=== PATIENT | male | born 1990 | race Caucasian/White ===

== ENCOUNTER 2018-03-23 12:28 | Day surgery (SDC) | payer OTHER, MEDICAID, SELFPAY ==
[2018-03-16 16:48] VITALS: BMI 31.4
[2018-03-23] VITALS (9 sets, daily range): BP systolic 111–148; BP diastolic 62–99; PULSE 80–97; RESP 10–18; TEMP 36.1–36.6; O2SAT 94–99; BMI 31.4
--- NOTE | 2018-03-23 | PATH_ITS ---
[facility] Accession Number: [id number] . 01 Material submitted: . PERIANAL . 01 Clinical history: . A: POSSIBLE CONDYLOMA . 02 Diagnosis: Perianal Biopsy: Squamous mucosa with condylomatous architectural features and involvement by low-grade squamous intraepithelial lesion (LSIL/mild dysplasia/AIN 1). No high-grade dysplasia or invasive tumor identified. Negative for p16 block immunostaining. [facility]/03/26/2018 . 02 Electronically signed: . Susie Kwok MD, Pathologist NPI- [id number] . 01 Gross description: . PERIANAL: Received in formalin are multiple fragment(s) of pat, soft tissue measuring 1.1 x 0.4 x 0.2 cm in aggregate submitted entirely in 1 cassette(s) /TRC /TRC . 02 Microscopic: . A p16 immunohistochemical stain is performed to further characterize the cells of interest on on block A1 and is negative for block immunostaining. A control stained appropriately. . The absence of p16 block immunostaining mitigates against the presence of high-risk HPV DNA in this biopsy. . * This test was developed and its performance characteristics determined by [facility]. It has not been cleared or approved by the U.S. Food and Drug Administration. The FDA has determined that such clearance or approval is not necessary. This test is used for clinical purposes. It should not be regarded as investigational or for research. . 02 Pathologist provided ICD-10: K62.82 . 02 CPT . 236055, [id number] Performed at: 01 [facility] [address], [place], [place] [id number] MD Abel Harvey MD Phone: [phone] Performed at: 02 [facility] [address] [place] [id number] MD Shaw Weiner MD Phone: [phone]
[2018-03-23] MEDS: LACTATED RINGERS 1,000 ML 42 ML IV (13:50)
--- NOTE | 2018-03-23 14:21 | PM.PREOP ---
Pre-operative Note Interval Note Pre-op Check: History & Physical Reviewed by Physician and Exam Performed H&P completed within 30 days and has changed as indicated here:: Little less obvious nodule adjacent to the anus.
--- NOTE | 2018-03-23 15:13 | SUR.OPER ---
Prone sheng knife on padded OR bed, head in foam head support, gel chest rolls, gel pad under knees, pillow under lower legs, toes free of pressure, arms secured on padded arm boards at <90 degrees abduction. Safety belt at lower back. tape over blanket over lower legs
[2018-03-23] MEDS: BUPIVACAINE 0.5% W/ EPI (PF) 30 ML VIAL INJ (15:22)
--- NOTE | 2018-03-23 15:55 | PM.OP.1 ---
Operative Date/Time/Diagnoses - Date of procedure: 03/23/18 Time of procedure: 15:55 Pre-op diagnosis: Perianal skin lesion. Perianal chronic infection process suspected fistula in ANO. 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 Same procedure as scheduled: Yes Indications: Periodically inflammation of a perianal skin lesion and the development of skin tags that may be condyloma Surgeon: Vinny Palomino Click Yes if Unassisted: Yes Anesthesia Type: General Operative Notes Findings: Perianal skin lesion on careful exam looked more like condylomata acuminata. There also moderate amounts of lesions on hemorrhoids just inside the anoderm. Closure Type: not applicable Specimen(s): other (Skin lesion and anal canal lesion) Implants & Drains: SETON of 0 surgilene Estimated Blood Loss (mL): 5 Blood products transfused: none Procedure in detail: The patient was placed sheng-knife prone on the operating table and under after undergoing general endotracheal anesthesia. He was carefully padded to prevent compression issues. He was prepped and draped in the usual fashion. This skin lesion of the perianal skin was excised and on careful exam looked more like a condylomata that I thought in the office. It was submitted. Digital exam was unremarkable of the anus. Circumferential exam however revealed multiple verrucous lesions highly suggestive of condyloma just inside the anal derm. Not quite circumferential but occupied a good bit of the circumference. I could not feel any tract of the fistula. Nor could I see 1. I fulgurated the internal lesions and excised 1 and submitted it along with the skin lesion. I then turned my attention to the small perianal lesion located at about the 7 o'clock position. I was able to probe a small barely visible sinus and it appeared to go deep to a portion of the musculature. Uncertain a 20 gauge catheter and injected better dyne through the tract and it was noted to egress internally through the presumptive fistulous opening. I partially open the tract and was able to pass a lacrimal probe into the internal opening from the external site. It went under a fair amount of the musculature and I decided not to divide it but places C ton. 0 Surgilene was passed through the opening and tied. The wounds were all irrigated. Local anesthetic was infiltrated around the perianal skin areas. Dressing was applied and the patient was awakened after placing him back on his bed. He was extubated taken recovery area in good condition. Complications: none Condition: stable Disposition: PACU Plan for aftercare: Follow-up in the office in about a week to 10 days.
[2018-03-23] MEDS: OXYCODONE IR 5 MG TABLET PO ×2 (16:05→16:57)
[2018-03-23] MEDS: ONDANSETRON 4 MG/2 ML INJ IV (16:14)
== END 2018-03-23 17:00 | disposition home or self-care (01) ==
PROVIDERS: Family Provider Physician Assistant; PCP Physician Assistant; Visit Provider Specialist
PROC: (CPT 45990; principal; 2018-03-23 13:30)
DX: K62.82 Dysplasia of anus (principal); A63.0 Anogenital (venereal) warts; K64.4 Residual hemorrhoidal skin tags; I10 Essential (primary) hypertension; R48.0 Dyslexia and alexia
CPT/HCPCS: 46275; 46922; 88305; 88342; J0330; J1100; J2405; J2704; J3010

== ENCOUNTER 2018-06-17 10:35 | Day surgery (SDC) | payer OTHER, MEDICAID, SELFPAY ==
[2018-06-07 13:03] VITALS: BMI 31.4
[2018-06-17 10:46] VITALS: BMI 31.4
[2018-06-17 11:02] VITALS: BP 127/82; PULSE 82; RESP 16; TEMP 36.3; O2SAT 96
[2018-06-17 11:03] VITALS: BMI 31.4
[2018-06-17] MEDS: LACTATED RINGERS 1,000 ML 42 ML IV ×2 (11:04→13:02)
--- NOTE | 2018-06-17 11:41 | PM.HP.1 ---
History of Present Illness Date Patient Seen: 06/17/18 Time Patient Seen: 11:44 Chief complaint: [id number] RECTAL EXAM UNDER ANESTHESIA Narrative: patient is gentleman had a transsphincteric fistula in ANO. A seton was placed and he also had condyloma acuminata excised and fulgurated. He is here now to remove his C ton and complete the fistulotomy as well as treat any recurrence of his condyloma. Patient History Medical History Transsphincteric anal fistula (Chronic) Condyloma (Acute) Elective surgery (Acute) ADHD (Chronic) Asthma (Chronic) Fatigue (Chronic) Hypertension (Chronic) Obese (Chronic) Former smoker (Resolved) Gonorrhea (Resolved) Family & Social History Family History: Reviewed 06/17/18 by Vinny Palomino MD Social History: household members friend(s) Tobacco & Substance use: Tobacco type e-cigarettes Smoking Status Current every day smoker Meds Home Medications Medication Instructions Recorded Confirmed Type [MULTIVITAMIN] 1 tab PO QDAY #0 03/31/17 06/17/18 History emtricitabine-tenofovir (TDF) 1 tab PO QDAY #30 tab 10/28/17 06/17/18 Rx [Truvada] [BENADRYL] 25 mg PO PRN PRN #0 01/25/18 06/17/18 History albuterol sulfate [Ventolin HFA] 2 puff INH Q4-6HP PRN 03/23/18 06/17/18 History felodipine ER 5 mg tablet,extended 5 mg PO QDAY #30 tab 06/09/18 Rx release 24 hr lisinopril 5 mg tablet 5 mg PO QDAY #30 tab 06/09/18 Rx Allergies Allergy/AdvReac Type Severity Reaction Status Date / Time Penicillins [PENICILLINS] Allergy Unknown MOM TOLD Unverified 06/07/18 13:13 ME TO STAY AWAY FROM IT SINCE I WAS A CHILD Review of Systems Review of Systems All systems reviewed & are unremarkable except as noted in HPI and below Exam Vital Signs (past 8 hours): - 06/17/18 11:02 Temperature 97.4 F L Pulse Rate 82 Respiratory Rate 16 Blood Pressure 127/82 H Pulse Oximetry 96 Oxygen Delivery Method Room Air Narrative Exam Narrative: Operative no apparent distress. Lungs are clear to auscultation without rales or rhonchi. Heart regular rate and rhythm without murmur gallop. Abdomen is protuberant soft nontender without mass. Genitalia were free of lesion. Assessment & Plan Plan: Assessment/Plan Narrative: Excise and fulgurate and removed the seton complete the fistulotomy if possible. I have discussed the procedure with the patient. High risk of recurrence of disease. All questions were answered.
--- NOTE | 2018-06-17 11:46 | PM.PREOP ---
Pre-operative Note Interval Note Pre-op Check: Yes History & Physical exam performed today by Physician Changes: No
--- NOTE | 2018-06-17 12:17 | SUR.OPER ---
Prone on padded OR bed, head in foam head support, gel chest rolls, gel pad under knees, pillow under lower legs, toes free of pressure, arms secured on padded arm boards at <90 degrees abduction. Safety belt at thigh.
--- NOTE | 2018-06-17 12:18 | SUR.OPER ---
BUTTOCKS TAPED APART.. SMOKE EVACUATOR USED
--- NOTE | 2018-06-17 12:29 | PM.OP.1 ---
Operative Date/Time/Diagnoses Date of procedure: 06/17/18 Time of procedure: 12:29 Pre-op diagnosis: history of condyloma acuminata. History of transsphincteric fistula in ANO with placement of a seton on Post-op diagnosis: same ( no Obvious recurrence of condyloma noted. One Small area of possible recurrence was fulgurated. fistula was quite superficial at this point.) Procedure & Clinicians Procedure: Anal exam under anesthesia with anoscope. completion fistulotomy with seton removal. Fulguration of small area of possible condyloma recurrence Same procedure as scheduled: Yes Indications: see preop diagnosis Surgeon: Vinny Palomino Click Yes if Unassisted: Yes Anesthesia Type: General Operative Notes Findings: see postop diagnosis Closure Type: non-primary Specimen(s): none sent Implants & Drains: none Estimated Blood Loss (mL): 3 Blood products transfused: none Procedure in detail: patient is placed sheng-knife prone on the operating room table after undergoing general endotracheal anesthesia. He was prepped and draped in the usual fashion. There are no visible external lesions. The seton was easily visible. Circumferential exam with an anoscope revealed only 1 area where there might have been the very tiny recurrence of his condyloma. This was at approximately the 9 o'clock position and internal to the sphincter. This was cauterized. This eat on was clearly quite superficial at this point. I cut a very small bridge of tissue and released the seton. The area base was cauterized. No other lesions were seen. Local anesthetic was infiltrated in the area where the completion fistulotomy was performed. Dressing was applied the patient was placed supine back on his bed and extubated taken recovery room good condition. Complications: none Condition: stable Disposition: PACU Plan for aftercare: Follow up in office
[2018-06-17] MEDS: BUPIVACAINE 0.5% W/ EPI (PF) VIAL 30 ML INJ (12:31)
[2018-06-17 12:35] VITALS: BP 139/84; PULSE 70; RESP 14; TEMP 36.2; O2SAT 98
[2018-06-17 12:43] VITALS: BP 133/86; PULSE 90; RESP 20; O2SAT 97
[2018-06-17] MEDS: ALBUTEROL 2.5 MG/3 ML NEB (ADULT) INH (12:52)
--- NOTE | 2018-06-17 12:53 | SUR.PHASEI ---
improved rsp. status after niebulized albuterol tx. states tightness resolved.
[2018-06-17 12:54] VITALS: BP 120/77; PULSE 81; RESP 17; O2SAT 98
[2018-06-17 12:59] VITALS: BP 125/81; PULSE 80; RESP 18; O2SAT 99
[2018-06-17] MEDS: HYDROCODONE/ACET 5/325 TABLET 1 TAB PO (13:33)
[2018-06-17 13:36] VITALS: BP 132/81; PULSE 96; RESP 16; TEMP 36.1; O2SAT 97
== END 2018-06-17 13:55 | disposition home or self-care (01) ==
PROVIDERS: Family Provider Physician Assistant; PCP Physician Assistant; Visit Provider Specialist
PROC: (CPT 45990; principal; 2018-06-17 11:30)
DX: K60.3 Anal fistula (principal); Z87.891 Personal history of nicotine dependence; I10 Essential (primary) hypertension; E66.9 Obesity, unspecified; L98.8 Other specified disorders of the skin and subcutaneous tissue
CPT/HCPCS: 46285; 46910; J0330; J1100; J2250; J2405; J2704; J3010; J7613

== ENCOUNTER → 2018-06-23 20:46 | Outpatient (CLI) | payer OTHER, MEDICAID, SELFPAY ==
--- NOTE | 2018-06-23 20:48 | DI.RAD.S_ITS ---
PROCEDURE: XR ANKLE RT MIN 3V INDICATIONS: ankle pain around lateral malleolus from fall. TECHNIQUE: 3 views of the ankle were acquired. COMPARISON: [facility], , ANKLE 3 VIEWS RIGHT, 06/24/2008, 17:50. FINDINGS: Bones: No fractures or dislocations. Ankle mortise is normally aligned. No suspicious bony lesions. Soft tissues: No tibiotalar joint effusion. Achilles tendon appears normal. IMPRESSION: Normal. Dictated by: Tariq Xie M.D. on 06/24/2018 at 7:19 Approved by: Tariq Xie M.D. on 06/24/2018 at 7:19
== END ==
PROVIDERS: Family Provider Physician Assistant; PCP Physician Assistant; Visit Provider Physician Assistant
DX: M25.571 Pain in right ankle and joints of right foot (principal)
CPT/HCPCS: 73610

== ENCOUNTER → 2018-09-08 15:47 | Outpatient (CLI) | payer OTHER, MEDICAID, SELFPAY ==
[2018-09-08 16:53] LABS: Alanine Aminotransferase 83 IU/L (21-72); Albumin 5.1 g/dL (3.5-5.0); Albumin Globulin Ratio 1.9 (1.0-2.8); Alkaline Phosphatase 75 U/L (38-126); Aspartate Aminotransferase 47 IU/L (17-59); BUN Creatinine Ratio 16.3 (6-22); Bilirubin Total 0.7 mg/dL (0.2-1.3); Blood Urea Nitrogen 13 mg/dL (9-20); Calcium 9.7 mg/dL (8.4-10.2); Carbon Dioxide 28 mmol/L (22-32); Chloride 100 mmol/L (98-107); Estimated Glomerular Filt Rate > 60.0 mL/min (>60); Globulin 2.7 g/dL (1.7-4.1); Glucose 103 mg/dL (70-100); HEMOLYSIS 23 (0-50); Potassium 4.4 mmol/L (3.4-5.1); Sodium 141 mmol/L (137-145); Total Protein 7.8 g/dL (6.3-8.2)
[2018-09-08 16:57] LABS: Microalbumi Creatinin Ratio Ur 6.7 ug/mg CR (<30)
[2018-09-08 17:35] LABS: Urine N gonorrhoeae NOT DETECTED
[2018-09-08 17:40] LABS: HIV 1 and 2 Antibody NEGATIVE (NEGATIVE)
[2018-09-08 17:55] LABS: Urine Chlamydia NOT DETECTED
== END ==
PROVIDERS: PCP Physician Assistant; Visit Provider Physician Assistant
DX: Z72.51 High risk heterosexual behavior (principal); I10 Essential (primary) hypertension
CPT/HCPCS: 36415; 80053; 82043; 82570; 86703; 87491; 87591

== ENCOUNTER → 2022-04-03 17:31 | Outpatient (CLI) | payer OTHER, MEDICAID, SELFPAY ==
[2022-04-03 18:50] LABS: Hemoglobin A1C% w Est Avg Glu 5.5 % (4.0-6.0)
[2022-04-04 12:04] LABS: Hematocrit 44.2 % (41-53); Hemoglobin 15.2 g/dL (13.5-17.5); Mean Corpuscular HGB Conc 34.4 % (30-36); Mean Corpuscular Hemoglobin 27.8 PG (26-34); Platelet Count 199 X10^3/uL (150-400); Red Blood Cell Count 5.47 X10^6/uL (4.5-5.9); Red Cell Distribution Width 12.9 % (11.6-14.8); White Blood Cell Count 8.6 X10^3/uL (4.5-11.0)
[2022-04-04 12:05] LABS: Add Manual Diff / Slide Review YES
[2022-04-04 12:51] LABS: Neutrophils Absolute Manual 5934 /uL (3000-5900); Total Cells Counted 100
[2022-04-04 12:52] LABS: RBC Morphology Normal Morphology
== END ==
PROVIDERS: Family Provider Physician Assistant; PCP Family Medicine; Referring Provider Family Medicine; Visit Provider Family Medicine
DX: Z00.00 Encounter for general adult medical examination without abnormal findings (principal); R73.03 Prediabetes; J45.20 Mild intermittent asthma, uncomplicated; N40.0 Benign prostatic hyperplasia without lower urinary tract symptoms
CPT/HCPCS: 36415; 83036; 85007; 85025

== ENCOUNTER → 2022-04-11 15:47 | Outpatient (CLI) | payer OTHER, MEDICAID, SELFPAY ==
[2022-04-11 16:56] LABS: Alanine Aminotransferase 48 IU/L (<50); Albumin Globulin Ratio 1.6 (1.0-2.8); Alkaline Phosphatase 56 U/L (38-126); Aspartate Aminotransferase 35 IU/L (17-59); BUN Creatinine Ratio 17.6 (6-22); Bilirubin Total 0.7 mg/dL (0.2-1.3); Blood Urea Nitrogen 16 mg/dL (9-20); Calcium 9.3 mg/dL (8.4-10.2); Carbon Dioxide 26 mmol/L (22-32); Chloride 103 mmol/L (98-107); Cholesterol 220 mg/dL (140-199); Estimated Glomerular Filt Rate > 60 mL/min (>60); Globulin 3.1 g/dL (1.7-4.1); Glucose 102 mg/dL (70-100); HDL Cholesterol 37 mg/dL (40-60); HEMOLYSIS < 15 (0-50); LDL Cholesterol Calculated 150 mg/dL (<100); Potassium 4.1 mmol/L (3.4-5.1); Sodium 137 mmol/L (137-145); Total Protein 8.1 g/dL (6.3-8.2); Triglycerides 167 mg/dL (35-150)
[2022-04-11 18:02] LABS: TSH w/ Reflex to FT4 1.18 uIU/mL (0.47-4.68)
== END ==
PROVIDERS: Family Provider Physician Assistant; PCP Family Medicine; Referring Provider Family Medicine; Visit Provider Family Medicine
DX: Z00.00 Encounter for general adult medical examination without abnormal findings (principal); J45.20 Mild intermittent asthma, uncomplicated; N40.0 Benign prostatic hyperplasia without lower urinary tract symptoms; R73.03 Prediabetes
CPT/HCPCS: 36415; 80053; 80061; 84443; 84588

== ENCOUNTER → 2023-05-15 16:57 | Outpatient (CLI) | payer OTHER, MEDICAID, SELFPAY ==
[2023-05-15 19:34] LABS: Alanine Aminotransferase 53 IU/L (<50); Albumin 4.8 g/dL (3.5-5.0); Albumin Globulin Ratio 1.8 (1.0-2.8); Alkaline Phosphatase 58 U/L (38-126); Aspartate Aminotransferase 33 IU/L (17-59); BUN Creatinine Ratio 15.1 (6-22); Bilirubin Total 0.7 mg/dL (0.2-1.3); Blood Urea Nitrogen 13 mg/dL (9-20); Calcium 9.4 mg/dL (8.4-10.2); Carbon Dioxide 29 mmol/L (22-32); Chloride 101 mmol/L (98-107); Cholesterol 200 mg/dL (140-199); Estimated Glomerular Filt Rate > 60 mL/min (>60); Globulin 2.7 g/dL (1.7-4.1); Glucose 95 mg/dL (70-100); HDL Cholesterol 29 mg/dL (40-60); HEMOLYSIS < 15 (0-50); LDL Cholesterol Calculated 123 mg/dL (<100); Potassium 4.2 mmol/L (3.4-5.1); Sodium 137 mmol/L (137-145); Total Protein 7.5 g/dL (6.3-8.2); Triglycerides 239 mg/dL (35-150)
[2023-05-16 07:03] LABS: Labcorp Hemoglobin (Hb) A1c 5.7 % (4.8-5.6)
== END ==
PROVIDERS: Family Provider Physician Assistant; PCP Family Medicine; Referring Provider Family Medicine; Visit Provider Family Medicine
DX: Z00.00 Encounter for general adult medical examination without abnormal findings (principal); R73.03 Prediabetes
CPT/HCPCS: 36415; 80053; 80061; 83036

== ENCOUNTER → 2023-12-29 17:13 | Outpatient (CLI) | payer OTHER, MEDICAID, SELFPAY ==
[2023-12-29 17:27] LABS: Appearance Urine UA CLEAR; Bilirubin Urine UA NEGATIVE (NEGATIVE); Color Urine UA YELLOW; Glucose Urine UA NEGATIVE (Negative); Ketones Urine UA NEGATIVE (NEGATIVE); Leukocyte Esterase Urine UA NEGATIVE (NEGATIVE); Nitrite Urine UA NEGATIVE (Negative); Occult Blood Urine UA NEGATIVE (Negative); Protein Urine UA NEGATIVE (Negative); Urobilinogen Urine UA 0.2 E.U./dL (0.2); pH Urine UA 5.5 (4.5-8.0)
[2023-12-29 17:36] LABS: Bacteria Urine None Seen; Culture Indicated Urine Cult Not Indicated; RBC Urine None Seen (0-5/HPF); Squamous Epithelial Cell Urine None Seen (0-5/HPF); Urine Volume 10mL (spun); WBC Urine None Seen (0-5/HPF)
== END ==
LOC: LAB 17:14
PROVIDERS: Family Provider Physician Assistant; PCP Family Medicine; Referring Provider Family Medicine; Visit Provider Family Medicine
DX: R30.0 Dysuria (principal)
CPT/HCPCS: 81001

== ENCOUNTER → 2024-02-25 14:59 | Outpatient (CLI) | payer OTHER, MEDICAID, SELFPAY ==
[2024-02-25 17:05] LABS: Prostate Specific Antigen 0.963 ng/mL (0.10-4.00)
== END ==
PROVIDERS: Family Provider Physician Assistant; PCP Family Medicine; Referring Provider Physician Assistant Medical; Visit Provider Physician Assistant Medical
DX: Z12.5 Encounter for screening for malignant neoplasm of prostate (principal)
CPT/HCPCS: 36415; 84153